=== PATIENT | male | born 1945 | race Caucasian/White ===

== ENCOUNTER 2022-07-26 05:09 | Observation (INO) ==
--- NOTE | 2022-07-03 15:37 | History & Physical Report ---
Date of Service July 03, 2022 date of surgery: 07/26/22 Procedure: Right Total Knee Arthroplasty Surgeon: Alfredo Ga Assessment & Plan (1) Arthritis of right knee: Plan: Risks and benefits of procedure discussed in detail today, patient would like to proceed with a Right total knee replacement at [facility] as scheduled. will obtain medical clearance through his PCP at the [place] prior to surgery as well as obtain PATs at [facility]. Will place on ASA 81mg po bid x 1 month post op, f/u 2 weeks post op for routine post-operative care and x-ray, sooner if having any problems. will make arrangements for HHPT at the time of discharge. At this point in time, has failed conservative measures and would like to proceed with surgical intervention. The risks and benefits have been discussed including, but not limited to, risk of infection, nerve injury, stiffness, loss of motion, failure to improve, etc. Reasonable outcomes and options of treatment were discussed. An explanation of appropriate alternatives to the procedure that may be advantageous were discussed and their risks and benefits, as well as the risks and benefits of not proceeding with treatment. I offered to answer any additional inquiries concerning the treatment involved. All the patient's questions were answered. The patient is agreeable, understanding of the treatment plan and alternatives, and wishes to proceed with the treatment plan. History of Present Illness Chief Complaint: Right knee pain Primary Care Provider: AROLDO Ibrahim Neeraj is a 77-year-old male presents for preop evaluation prior to right total knee replacement. He has been having pain in this knee for many years now which is gradually worsened, is now affecting his daily activities. He is tried previous injections including cortisone and viscosupplementation with minimal relief. He tried oral anti-inflammatories including naproxen. Rates current pain as a 6 out of 10. Has complaints of instability pain and intermittent swelling. After discussing further care and reviewing his x-rays he would like to proceed with a right total knee replacement Allergies Allergy/AdvReac Type Severity Reaction Status Date / Time No Known Allergies Allergy Verified 06/20/22 08:34 Home Medications Medication Instructions Recorded Confirmed Type aspirin 81 mg tablet,delayed 81 mg PO HS 05/17/22 06/20/22 History release cholecalciferol (vitamin D3) 25 25 mcg PO QAM 05/17/22 06/20/22 History mcg (1,000 unit) tablet (Vitamin D3) cyanocobalamin (vitamin B-12) 1,000 mcg PO QAM 05/17/22 06/20/22 History 1,000 mcg tablet (Vitamin B-12) finasteride 5 mg tablet 5 mg PO HS 05/17/22 06/20/22 History metoprolol succinate 25 mg 25 mg PO QAM 05/17/22 06/20/22 History tablet,extended release 24 hr ramipril 5 mg capsule 5 mg PO QAM 05/17/22 06/20/22 History rosuvastatin 40 mg tablet 40 mg PO HS 05/17/22 06/20/22 History tamsulosin 0.4 mg capsule 0.4 mg PO HS 05/17/22 06/20/22 History tiotropium bromide 2.5 2 puff inhalation QA 05/17/22 06/20/22 History mcg/actuation mist for inhalation vit C 250 mg-vit E 90 mg-zinc 40 1 tab PO BID 05/17/22 06/20/22 History mg-copper 1 [id number] capsule (PreserVision AREDS-2) Past Med/Surg History Medical History Bladder cancer DX 8 YR AGO/MONITORING CAD (coronary artery disease) 1 stent 2004 after [place], follows with PCP COPD (chronic obstructive pulmonary disease) MILD Enlarged prostate History of myocardial infarction 2004 ...STENT X 1 [place] (hard of hearing) HTN (hypertension) controlled, stable per pt Hyperlipidemia Macular degeneration HX SHOTS FOR/1 YR AGO Prostate cancer DX 8 YR AGO/MONITORING Sleep apnea CPAP-compliant Surgical History History of cardiac cath [place]...2005 - [facility] - STENT X 1 History of cholecystectomy History of colonoscopy with polypectomy NON CANCEROUS Social History Smoking Status: Current some day smoker Cigarettes Per Day: 1 PACK LASTS ABOUT 3 MONTHS / ADVISED NPO; Hx Alcohol Use: Yes Hx Substance Use: No Preferred Language: Angolan Communication Ability: Effective Driver Courier Required: No Beliefs That Will Affect Care: None Current Living Situation: Spouse Feels Safe at Home: Yes Assistive Devices: Denture - Upper and Hearing Aid - Bilateral Review of Systems Review of Systems: All systems reviewed & are unremarkable except as noted in HPI & below Constitutional: no fever, no chills and no sweats Respiratory: no cough and no dyspnea Cardiovascular: no chest pain, no dyspnea and no orthopnea Gastrointestinal: no abdominal pain, no nausea and no vomiting Musculoskeletal: as per Subjective / HPI Physical Exam Physical Exam: HT: 5ft 10in WT: 97.2kg Constitutional: WD/WN, vitals as above no acute distress Respiratory: normal respiratory effort, lungs clear to auscultation no respiratory distress, no labored breathing and does not use accessory muscles Cardiovascular: RRR, no murmur, no edema Gastrointestinal (Abdomen): normal bowel sounds, soft, nontender, no hepatosplenomegaly Musculoskeletal: Knee: + knee abnormal to inspection (RIGHT KNEE: ), + effusion (+1 effusion), + limited ROM of knee (ROM 0/3/110), + knee ROM with crepitation, + joint line tenderness (medial joint line) and + Ramiro's sign positive; no deformity, no skin erythema, no ecchymosis, no valgus laxity, no varus laxity, anterior drawer test negative, Kenji's sign negative and pivot shift test negative Results & Data Results & Data ([facility]) Diagnostic Findings Right Knee X-ray: Right knee series showing advanced degenerative changes to the right knee, narrowing of the medial compartment and patello-femoral joint with patellar spurring noted, findings showing joint space narrowing of the medial compartment and patello-femoral joint, osteophyte formation and subchondral sclerosis noted. overall varus alignment. no acute bony pathology noted.
--- NOTE | 2022-07-19 12:30 | Anesthesiology Consultation ---
Date of Service July 19, 2022 Assessment & Plan (1) Encounter for pre-operative examination: Plan - medical clearance 06/16/22: "...preop...labs, radiology and other diagnostic test results were reviewed with the patient...cleared for surgery..." - COVID screening: Per remote sensing specialist on 07/19/2022: Travel screen negative. Now at acceptable interval from positive COVID test to undergo surgery as scheduled. Chart Review Chart Review: Acceptable Risk for Surgery and Patient NOT seen in Pre Admission Testing History Surgery Operation Date: 07/26/22 10:35 Proposed Procedures p Right Total Knee Arthroplasty - Alfredo Ga DO Height/Weight Height: 5 ft 10 in Weight: 95.254 kg Allergies Allergy/AdvReac Type Severity Reaction Status Date / Time No Known Allergies Allergy Verified 06/20/22 08:34 Medications Home Medications Medication Instructions Recorded Confirmed Last Taken aspirin 81 mg tablet,delayed 81 mg PO 05/17/22 07/19/22 06/20/22 06:00 release cholecalciferol (vitamin D3) 25 25 mcg PO QA 05/17/22 07/19/22 06/06/22 07:00 mcg (1,000 unit) tablet (Vitamin D3) cyanocobalamin (vitamin B-12) 1,000 mcg PO QA 05/17/22 07/19/22 06/06/22 07:00 1,000 mcg tablet (Vitamin B-12) finasteride 5 mg tablet 5 mg PO 05/17/22 07/19/22 06/20/22 06:00 metoprolol succinate 25 mg 25 mg PO [facility] 05/17/22 07/19/22 06/20/22 06:00 tablet,extended release 24 hr ramipril 5 mg capsule 5 mg PO [facility] 05/17/22 07/19/22 06/20/22 06:00 rosuvastatin 40 mg tablet 40 mg PO 05/17/22 07/19/22 06/20/22 06:00 tamsulosin 0.4 mg capsule 0.4 mg PO 05/17/22 07/19/22 06/20/22 06:00 tiotropium bromide 2.5 2 puff inhalation [facility] 05/17/22 07/19/22 06/20/22 07:00 mcg/actuation mist for inhalation vit C 250 mg-vit E 90 mg-zinc 40 1 tab PO BID 05/17/22 07/19/22 06/06/22 07:00 mg-copper 1 [id number] capsule (PreserVision AREDS-2) Past Medical History Medical History Bladder cancer DX 8 YR AGO/MONITORING CAD (coronary artery disease) 1 stent 2004 after [place], follows with PCP COPD (chronic obstructive pulmonary disease) "MILD" Enlarged prostate History of COVID-19 06/20/22>symptoms resolved History of myocardial infarction 2005 ...STENT X 1 [place] (hard of hearing) HTN (hypertension) controlled, stable per pt Hyperlipidemia Macular degeneration HX SHOTS FOR/1 YR AGO Prostate cancer DX 8 YR AGO/MONITORING Sleep apnea CPAP-compliant Past Family History Family History Other No family history of adverse response to anesthesia Past Surgical History Surgical History History of cardiac cath [place]2005 - [facility] - STENT X 1 History of cholecystectomy History of colonoscopy with polypectomy Social History Smoking Status: Current some day smoker tobacco type: cigarettes Smoking cigarettes per day: 1 PACK LASTS ABOUT 3 MONTHS / ADVISED NPO Do You Dip or Chew Tobacco: No Hx Alcohol Use: Yes alcohol intake frequency: holidays/special occasions only Hx Substance Use: No substance use type: does not use Lab Results Anesthesia Preop Results Results Anesthesia Widget: WBC 6.52 K/ul (4.8-10.8) 05/26/22 Hgb 13.2 g/dl (14.0-18.0) L 05/26/22 Hct 40.1 % (40.1-51.0) 05/26/22 Plt 153 K/uL (130-400) 05/26/22 Na 141 mmol/L (136-145) 05/26/22 K 4.1 mmol/L (3.5-5.1) 05/26/22 Cl 108 mmol/L (98-107) H 05/26/22 CO2 27 mmol/L (21-32) 05/26/22 BUN 16 mg/dl (6-23) 05/26/22 Creat 1.11 mg/dl (0.6-1.4) 05/26/22 Glucose Level 94 mg/dl (70-99(Fasting)) 05/26/22 PT 10.7 Seconds (9.0-12.0) 05/26/22 PTT 25.5 Seconds (21.0-31.0) 05/26/22 INR 1.0 (0.9-1.1) 05/26/22 Urine Color [place] 05/26/22 Urine Appearance Clear (Clear) 05/26/22 Urine pH (4.5-7.5) 05/26/22 Urine Specific [place] 1.013 (1.000-1.030) 05/26/22 Urine Protein (Negative) 05/26/22 Urine Glucose (UA) (Negative) 05/26/22 Urine Ketones (Negative) 05/26/22 Urine Blood (Negative) 05/26/22 Urine Nitrite (Negative) 05/26/22 Urine Bilirubin (Negative) 05/26/22 Urine Urobilinogen (Negative) 05/26/22 Urine Leukocyte Esterase (Negative) 05/26/22 SARS-CoV-2, RNA, NAAT POSITIVE (NEGATIVE) A* 06/20/22 Blood Type A Negative 05/26/22 Antibody Screen NEGATIVE 05/26/22 Testing Electrocardiogram Date: 05/04/22 Sinus bradycardia with sinus arrhythmia, rate 48 bpm Chest X-Ray Date: 05/26/22 Calcifications within the aortic knob No acute process Echocardiogram Date: 09/14/17 EF 55-60% Mild cLVH No significant valvular stenosis or regurgitation Other Testing Carotid doppler 10/14/21 Mild plaque. No significant stenosis in either ICA
[2022-07-26] MEDS ORDERED: ACETAMINOPHEN 500 MG TAB PO SCH (06:00)
[2022-07-26] MEDS ORDERED: dexAMETHasone 4 MG TAB PO SCH (06:00)
[2022-07-26] MEDS ORDERED: LR 500ML BOLUS, THEN 15ML/HR IV SCH (06:00)
[2022-07-26] MEDS ORDERED: ROPIVACAINE 0.5% HCL/PF 150 MG, BUPIVACAINE 0.75% MPF 20 ML, EPINEPHrine 30MG/30ML (OR ... INFIL SCH (06:00)
[2022-07-26] MEDS ORDERED: CeleBREX 200 MG CAP PO SCH (06:00)
[2022-07-26] MEDS ORDERED: ceFAZolin 2000MG 2,000 MG/15 ML SYR IV SCH (06:00)
[2022-07-26] MEDS ORDERED: Ketorolac (*for OR use only*) 30 MG, dexAMETHasone 4 MG, KETAMINE HCL (**OR use only) 1... INFIL SCH (06:00)
[2022-07-26] MEDS ORDERED: METOCLOPRAMIDE HCL 10 MG TABLET PO SCH (06:00)
[2022-07-26] MEDS ORDERED: TRANEXAMIC ACID / 0.7% NACL 1,000 MG/100 ML BAG IV SCH ×2 (06:00→06:30)
[2022-07-26] MEDS ORDERED: FAMOTIDINE 20 MG TAB PO SCH (06:00)
[2022-07-26] MEDS ORDERED: GABAPENTIN 300 MG CAP PO SCH (06:00)
[2022-07-26] MEDS ORDERED: ROPIVACAINE 0.5% 5 MG/ML 30 ML VIAL ONE (06:23)
[2022-07-26] MEDS ORDERED: BUPIVACAINE 0.5 % 5 MG/1 ML PF 10ML VIAL ONE (06:23)
[2022-07-26] MEDS ORDERED: MIDAZOLAM HCL 1 MG/ML 2ML VIAL ONE (06:37)
[2022-07-26] MEDS ORDERED: TRANEXAMIC ACID / 0.7% NACL 1000MG/100ML BAG IV ONE (06:42)
[2022-07-26] MEDS ORDERED: ePHEDrine sulfate 50 MG/ML AMP IV PRN (06:50)
[2022-07-26] MEDS ORDERED: ONDANSETRON INJ 2 MG/ML 2 ML VIAL IV PRN ×2 (06:50→11:16)
[2022-07-26] MEDS ORDERED: ATROPINE SULFATE 0.1 MG/ML 10ML SYR IV PRN (06:50)
[2022-07-26] MEDS ORDERED: KETOROLAC 30 MG/ML VIAL IV PRN (06:50)
[2022-07-26] MEDS ORDERED: HYDROmorphone INJ 1 MG/ML SYRINGE IV PRN ×2 (06:50→11:16)
--- NOTE | 2022-07-26 07:07 | History & Physical Bridge Note ---
Date of Service July 26, 2022 History & Physical Bridge Note I have examined the patient, reviewed the History & Physical and in the interval since the performance of the History & Physical I have noted the following changes of clinical significance: no changes noted
[2022-07-26] MEDS ORDERED: PROPOFOL IV EMULSION 10 MG/ML 20 ML VIAL IV ONE (07:20)
--- NOTE | 2022-07-26 08:20 | Operative Report ---
Post Operative Report Pre & Post Diagnosis Operation Date: 07/26/22 07:00 Pre-Op Diagnosis: Osteoarthritis Right Knee Post-Op Diagnosis: Osteoarthritis Right Knee I identified the patient and participated in the time-out.: Yes Procedure Operation Date: 07/26/22 07:00 Actual Procedures p Right Total Knee Arthroplasty(Right) utilizing [employer] journey to an en bloc total knee arthroplasty size 6 femur 7 tibia 7 polyten patella 35 oval- Alfredo Ga DO Surgeon Alfredo Ga DO Binding Nicker KERWIN Nava Estimated Blood Loss 5 Findings Consistent with Post-Op Diagnosis Patient presents with severe end-stage tricompartmental DJD 7 degree flexion contracture varus alignment subchondral sclerosis marginal osteophytes eburnated [id number] with moderate to large effusion Specimens Bone and cartilage Drains Medium bore Hemovac Anesthesia Type MAC Spinal Regional Complications none Disposition Accompanied Patient To Recovery: No Disposition: Recovery Room Indications Patient presents severe end-stage DJD right knee no response to conservative management patient's failed all attempts at conservative management including corticosteroid injection viscosupplementation relative rest activity modification the above intraoperative findings were noted Description of Procedure After proper prepping and draping of the Right lower extremity anterior midline incision was made over the region of the extensor extensor mechanism after meticulous hemostasis was obtained and maintained in subcutaneous tissues a medial parapatellar incision was made The patella was subluxed lateralward the medial lateral gutter were cleaned from any hypertrophic synovitis and scar tissue of the distal femoral block was placed and the distal femoral osteotomy cut was made subsequently the chamfers anterior and posterior osteotomy cuts were made utilizing the 4-in-1 block the tibia was subsequently subluxed anteriorward medial and ateral meniscal remnants were excised in their entirety remnants of the anterior and posterior cruciate ligaments were excised in their entirety excellent exposure of the proximal tibia was obtained the tibial osteotomy guide was placed on the proximal tibial osteotomy cut was made once again the knee was irrigated with copious amounts of sterile saline solution the patella was subsequently everted lateralward thickened scar tissue around the patella was removed the patella was subsequently cut utilizing a freehand technique and was drilled prepared for final preparation and placement of patella socially flexion-extension gaps were checked and the equal and symmetric trials were placed to the appropriate femoral and tibial trials with poly-spacer being placed for equal flexion and extension gaps and full range of motion including extension to 0 and flexion to 140 the trial components after having been taken to recovery range of motion was subsequently removed meticulous hemostasis was obtained and maintained subsequently a knee block injection of joint cocktail including ropivacaine 0.5% 150 mg. Bupivacaine 0.5% epinephrine 1-200,030 mL's toradol 30 mg dexamethasone 4 mg ketamine 10 mg clonidine 100 micrograms normal saline solution 30 mg was infiltrated into the soft tissues of the posterior knee medial lateral gutters and periosteal synovium special attention was paid to protect neurovascular structures at all times subsequently trial components having been removed the knee was irrigated with sterile saline solution. debris was removed the proximal tibia was subsequently prepared and was made ready for the placement of the tibial component tibial component was also cemented and tamped into position the femoral component was subsequently placed and cemented in the position the patellar component was subsequently cemented in position because hemostasis once again obtained and maintained wound having been thoroughly irrigated with debridement and debridement lavage was performed as well as a medial parapatellar incision closed with #1 Vicryl in interrupted fashion subcutaneous was closed with #2 Vicryl skin was closed with skin clips. PA-C was necessary for prepping and drapping as well as wound closure of deep fascia Sub cutaneous tissue and skin and was necessary for the case. A sterile compressive dressing was placed patient was taken to recovery in stable condition of report dictated by Harmeet I attest to the content of the Intraoperative Record and any orders documented therein. Any exceptions are noted below.Due to the complex nature of the procedure, the entire surgery was performed with the operational assistance of KERWIN Nava. The drug safety assistant, under direct supervision, was involved in the actual performance of all aspects of the surgical procedure including hemostasis, tissue retraction and incision, instrument management, patient positioning, and wound closure. I attest to the content of the Intraoperative Record and any orders documented therein. Any exceptions are noted below.
--- NOTE | 2022-07-26 09:33 | XRay Report ---
XR knee RT 1 or 2V routine CLINICAL HISTORY: Postoperative evaluation. COMPARISON: None FINDINGS: Alignment of the total right knee arthroplasty is anatomic. No periprosthetic fracture or unexpected radiopaque foreign body. There is a surgical drain. IMPRESSION: Expected findings following total right knee arthroplasty. ACT 112: Negative or not required by law. Electronically signed by: Jay Tim M.D. 07/26/2022 9:32 AM
[2022-07-26] MEDS ORDERED: SODIUM CHLORIDE 0.9% 1000ML 1,000 ML IV SCH (11:16)
[2022-07-26] MEDS ORDERED: MAGNESIUM HYDROXIDE SUSP 30 ML UDC PO PRN (11:16)
[2022-07-26] MEDS ORDERED: METOCLOPRAMIDE HCL INJ 5 MG/ML 2 ML VIAL IV PRN (11:16)
[2022-07-26] MEDS ORDERED: diphenhydrAMINE Capsule 25 MG CAP PO PRN (11:16)
[2022-07-26] MEDS ORDERED: NALOXONE HCL 0.4 MG/1 ML VIAL/CARP IV PRN (11:16)
[2022-07-26] MEDS ORDERED: bisacodyL 10 MG SUPP PR PRN (11:16)
[2022-07-26] MEDS ORDERED: oxyCODONE HCL IR 5 MG TAB (IMMEDIATE RELEASE) PO PRN (11:16)
[2022-07-26] MEDS ORDERED: NON-FORMULARY MEDICATION (Vit C,E-Zn-Coppr-Lutein-Zeaxan [Preservision Areds-2] 250-90-40- PO SCH (11:16)
--- NOTE | 2022-07-26 11:57 | Anesthesiology Progress Note ---
Date of Service July 26, 2022 Anesthesia Post Procedure Vital Signs Vital Signs: Temp Pulse Pulse Resp BP Pulse Ox O2 Del Method 07/26/22 11:30 52 L 14 125/72 97 Room Air 07/26/22 11:00 56 L 14 165/76 H 93 Room Air 07/26/22 10:45 54 L 12 157/76 H 96 Room Air 07/26/22 10:30 56 L 12 163/81 H 97 Room Air 07/26/22 10:15 58 L 14 147/77 H 94 Room Air 07/26/22 10:05 63 17 140/72 97 Room Air 07/26/22 09:55 59 L 13 137/67 95 Room Air 07/26/22 09:45 57 L 12 140/74 96 Room Air 07/26/22 09:25 36.3 C L 58 L 12 126/68 96 Room Air 07/26/22 09:15 55 L 14 140/64 99 Oxymask 07/26/22 09:05 57 L 15 122/57 L 100 Oxymask 07/26/22 09:35 63 15 147/70 H 96 Room Air 07/26/22 08:57 36.3 C L 62 14 116/56 L 98 Oxymask 07/26/22 05:42 36.5 C 59 L 20 130/67 97 Room Air O2 Flow Rate 07/26/22 11:30 07/26/22 11:00 07/26/22 10:45 07/26/22 10:30 07/26/22 10:15 07/26/22 10:05 07/26/22 09:55 07/26/22 09:45 07/26/22 09:25 07/26/22 09:15 6 07/26/22 09:05 6 07/26/22 09:35 07/26/22 08:57 6 07/26/22 05:42 Transfer of Care Handoff Completed per policy Notes Mental Status: alert / awake / arousable Patient Amnestic to Procedure: Yes Nausea / Vomiting: adequately controlled Pain: adequately controlled Airway Patency, RR, SpO2: stable & adequate BP & HR: stable & adequate Hydration State: stable & adequate Neuraxial Anesthesia: was administered and sensory block is resolving Anesthetic Complications: no major complications apparent
[2022-07-26] MEDS: CYANOCOBALAMIN (B-12) 500 MCG TABLET PO SCH (15:24)
[2022-07-26] MEDS: ENALAPRIL MALEATE 10 MG TAB PO SCH (15:24)
[2022-07-26] MEDS: ASPIRIN 81 MG ECTAB PO SCH ×2 (15:24→21:21)
[2022-07-26] MEDS: CHOLECALCIFEROL 1,000 UNITS 25 MCG TAB PO SCH (15:27)
[2022-07-26] MEDS: MULTIVITAMIN TAB PO SCH (15:27)
[2022-07-26] MEDS: METOPROLOL SUCC 25MG EXT REL TAB PO SCH (15:27)
[2022-07-26] MEDS: UMECLIDINIUM BROMIDE 62.5MCG/BLISTER 7 PUFFS/INHALER INH SCH (15:28)
[2022-07-26] MEDS: ACETAMINOPHEN 500 MG TAB PO SCH ×2 (15:28→21:27)
[2022-07-26] MEDS: DOCUSATE SODIUM 100 MG CAP PO SCH ×2 (15:36→21:22)
[2022-07-26] MEDS: KETOROLAC TROMETHAMINE 15 MG/ML VIAL IV SCH ×3 (15:36→23:59)
[2022-07-26] MEDS: ceFAZolin 2000MG 2,000 MG/15 ML SYR IV SCH ×2 (16:40→23:58)
[2022-07-26] MEDS ORDERED: TAMSULOSIN HCL 0.4 MG CAP PO SCH (21:00)
[2022-07-26] MEDS ORDERED: FINASTERIDE 5 MG TAB PO SCH (21:00)
[2022-07-26] MEDS ORDERED: SENNA 8.6 MG TAB PO SCH (21:00)
[2022-07-26] MEDS ORDERED: ROSUVASTATIN CALCIUM 20 MG TAB PO SCH (21:00)
[2022-07-27] MEDS: ACETAMINOPHEN 500 MG TAB PO SCH (05:24)
[2022-07-27] MEDS: KETOROLAC TROMETHAMINE 15 MG/ML VIAL IV SCH (05:25)
--- NOTE | 2022-07-27 06:43 | Orthopedic Progress Note ---
Date of Service July 27, 2022 Assessment & Plan (1) History of total right knee replacement: Plan: POD #1 s/p Right TKA pt/ot dvt proph with [facility]/SCD/ASA plan for d/c home with HHPT Admission and Anticipated Discharge Date Admission Date: July 26, 2022 Subjective POD #1 s/p Right TKA Review of Systems Constitutional: no fever, no chills and no sweats Respiratory: no cough and no dyspnea Cardiovascular: no chest pain and no dyspnea Gastrointestinal: no abdominal pain, no nausea and no vomiting Physical Exam Physical Exam: Vital Signs Temp 36.8 C 07/27/22 03:21 Pulse 58 L 07/27/22 03:21 Resp 18 07/27/22 03:21 BP 108/60 07/27/22 03:21 Pulse Ox 96 07/27/22 03:21 O2 Del Method 07/27/22 03:21 O2 Flow Rate 6 07/26/22 09:15 Intake & Output 07/26/22 07/26/22 07/27/22 06:59 18:59 06:59 Intake Total 1400 / 1400 0 / 1400 Output Total 820 / 820 Balance 580 / 580 0 / 580 Weight 95.8 kg 95.8 kg Intake: IV 100 / 100 0 / 100 Lactated Ringe r's 1,000 ml @ 15 0 / 0 mls/hr IV .Q24 H [facility] Rx#: [id number] Sodium Chlorid e 0.9% 1000ML 1, 0 / 0 000 ml @ 100 m ls/hr IV .Q10H [facility] Rx#:[id number] Tranexamic Aci d / 0.7% NaCl 1, 100 / 100 000 mg In 100 ml @ 600 mls/hr IV TODAY@0630 [facility] Rx#:[id number] IV Perioperative 1300 / 1300 Output: Urine 800 / 800 Estimated Blood Loss 5 / 5 Drain Output 15 / 15 Right Knee Hem ovac 15 / 15 Other: Weight Measureme nt Method Standing Scale Musculoskeletal: Right Leg: NVDI, calf SNT, negative trina sign. DP palpable, able to wiggle toes/ankle movement without difficulty. dressing clean dry and intact. Results & Data ([facility]) Vital Signs (Past 12 Hours) Vital Signs Temp Pulse Resp BP Pulse Ox O2 Del Method 07/27/22 03:21 36.8 C 58 L 18 108/60 96 Room Air 07/26/22 23:00 36.8 C 62 18 115/62 98 Room Air
[2022-07-27 07:28] LABS: Hematocrit (blood only) 33.4 % (40.1-51.0); Hemoglobin 11.4 g/dl (14.0-18.0); Mean Corpuscular Hemoglobin 32.4 pg (25.0-34.0); Mean Corpuscular Hgb Conc 34.1 g/dL (32.0-36.0); Mean Corpuscular Volume 94.9 fL (80.0-100.0); Mean Platelet Volume 10.6 fL (9.4-12.4); Platelet Count 136 K/uL (130-400); RDW Coefficient of Variation 14.1 % (11.5-14.5); RDW Standard Deviation 48.8 fL (36.4-46.3); Red Blood Count 3.52 M/uL (4.63-6.08); White Blood Count 13.67 K/ul (4.8-10.8)
--- NOTE | 2022-07-27 07:30 | Discharge Summary ---
Date of Service date of discharge: July 27, 2022 date of admission: 07/26/22 Admission HPI Per Admitting Provider Neeraj is a 77-year-old male presents for preop evaluation prior to right total knee replacement. He has been having pain in this knee for many years now which is gradually worsened, is now affecting his daily activities. He is tried previous injections including cortisone and viscosupplementation with minimal relief. He tried oral anti-inflammatories including naproxen. Rates current pain as a 6 out of 10. Has complaints of instability pain and intermittent swelling. After discussing further care and reviewing his x-rays he would like to proceed with a right total knee replacement Principal Diagnosis right knee arthritis Discharge Exam Vital Signs Temp 36.9 C 07/27/22 07:22 Pulse 56 L 07/27/22 07:22 Resp 18 07/27/22 07:22 BP 127/66 07/27/22 07:22 Pulse Ox 97 07/27/22 07:22 O2 Del Method 07/27/22 07:22 O2 Flow Rate 6 07/26/22 09:15 Intake & Output 07/26/22 07/27/22 07/27/22 18:59 06:59 18:59 Intake Total 1400 / 1400 0 / 1400 Output Total 820 / 820 Balance 580 / 580 0 / 580 Weight 95.8 kg Intake: IV 100 / 100 0 / 100 Lactated Ringer's 1,000 ml @ 15 0 / 0 mls/hr IV .Q24H [facility] Rx#: [id number] Sodium Chloride 0.9% 1000ML 1, 0 / 0 000 ml @ 100 mls/hr IV .Q10H [facility] Rx#:[id number] Tranexamic Acid / 0.7% NaCl 1, 100 / 100 000 mg In 100 ml @ 600 mls/hr IV TODAY@0630 [facility] Rx#:[id number] IV Perioperative 1300 / 1300 Output: Urine 800 / 800 Estimated Blood Loss 5 / 5 Drain Output 15 / 15 Right Knee Hemovac 15 / 15 Musculoskeletal Right knee: NVDI, calf SNT, negative trina sign. DP palpable, able to wiggle toes/ankle movement without difficulty. dressing clean dry and intact. expected post-operative bruising noted. Discharge Data Allergies Allergy/AdvReac Type Severity Reaction Status Date / Time No Known Allergies Allergy Verified 07/26/22 05:30 Procedures Performed Operation Date: 07/26/22 07:00 Actual Procedures p Right Total Knee Arthroplasty(Right) - Alfredo Ga DO Ordered Studies 07/26/22 05:00 US - OR guided needle placemen Routine Hospital Course (1) History of total right knee replacement: POD #1 s/p Right TKA pt/ot dvt proph with PHOEBE/SCD/ASA plan for d/c home with HHPT Total Time Total Time Spent Total Time Spent (In Minutes): 20 Discharge Plan Discharge Items Patient Disposition: Home - Home Health Services Reason For Visit: Osteoarthritis Right Knee Discharge Diagnosis: right total knee replacement Condition on Discharge: Good Activity: Per Instructions section Weightbearing Comment: wbat with walker Non-emergency contact: Surgeon Call non-emergency contact if: you have any medication questions, your temperature is above 101, your wound has increased redness, your wound has increased drainage and your wound pain has increased Follow-up/Referrals: Yue Boyd CRNP [Primary Care Provider] - Diet: Regular Addtl Attending Provider Instructions: ACTIVITY RECOMMENDATIONS: SELF CARE INSTRUCTIONS AFTER TOTAL KNEE REPLACEMENT A. You may need to continue a physical therapy program after discharge from the hospital. There are several options available to you. Your doctor will assist you in selecting the best one for you. 1. An out-patient facility 2 to 3 times a week for therapy or home therapy. 2. Continue working on all exercises taught to you in the hospital. Your goals should be to increase bending of your knee to 90 degrees and beyond and to fully straighten your knee. B. You may progress at your own pace from walking with a walker or crutches to a cane; then to no assistive devices. C. Make walking a part of your daily routine. Be up as much as comfortable with rest periods throughout the day. Rest with leg elevation is very important. Use the ice wrap frequently for the first 3-4 weeks. D. There are no restrictions on activities. You may ride in a car, shop, participate in narcotics and/or vice detective and all social activities. E. Wear the long elastic stockings (PHOEBE hose) 20 hours a day for 2 weeks after surgery. They can be removed several times a day for laundering and for a bath. F. You may shower, no tub baths until cleared by your doctor. SPECIAL CARE INSTRUCTIONS: VERY IMPORTANT TO READ AND REVIEW A. There are a few signs you need to watch for after you are home. Call [facility] if you notice any of the followin. Increased severe knee pain. Some pain is expected especially when you exercise. 2. Increased swelling in your leg or knee; pain or swelling of the calf muscle in either lower leg. 3. Any fluid drainage from the incision. 4. Shortness of breath or chest pain. B. Please call [facility] at if you have any concerns or questions about your operation or recovery. The doctor or his nurse will return your call promptly. C. You must take antibiotics before dental work, bladder, bowel or other surgery. Your doctor will provide you with a permanent care to carry describing this precaution. IMPORTANT: * REMEMBER TO TAKE ASPIRIN, 81 MG, TWICE DAILY FOR 4 WEEKS UNLESS OTHERWISE DIRECTED. THIS IS YOUR BLOOD THINNER. * HIGH RISK PATIENTS MAY BE PRESCRIBED A STRONGER BLOOD THINNER. THIS WILL BE PROVIDED AT DISCHARGE. * CALL IF INCREASED PAIN, REDNESS, DRAINAGE OR FEVER GREATER THAT 101. * WEAR PHOEBE HOSE 20 HOURS PER DAY FOR 2 WEEKS. DRESSING INSTRUCTIONS * DEEJAY Dressing- This is a large suction dressing covering your incision. This will help pull any excess drainage from the wound and allow your incision to heal properly. You may shower with this if you can keep the unit outside of the shower. If any bleeding or leakage is noted please call your doctor's office. This will remain on your incision for 7 days and then should be removed. This can be done yourself or by the home nursing staff if applicable. The entire unit is disposable once removed. Once removed, keep incision clean and dry. If redness or drainage is noted, please call your surgeon. ONCE DEEJAY IS REMOVED, FOLLOW THESE INSTRUCTIONS: DERMABOND Prineo- This is a mesh tape dressing that is covered with glue. It should remain in place until the incision is properly healed, usually 10-14 days. This dressing is designed to naturally slough off. You may trim the excess mesh tape as it peels off. Incision may be briefly wet in a shower. Dry immediately by blotting with a clean, dry towel. Do not bath or swim until instructed by your doctor. Do not scratch, rub, or pick at the dressing. Do not apply any topical ointments or lotions until dressing is completely removed and/or instructed by your doctor. There may be a small piece of suture material at one end of your incision. Do not pull or trim this. If it is bothersome or catching on clothing, you may cover it with a band-aid. IF INCISION IS LEAKING THROUGH DRESSING, CALL THE OFFICE . FOLLOW UP VISIT: If appointment is not already scheduled: Please call [facility] to make a follow-up appointment for 2 weeks after your surgery at . Stand-Alone Forms: My [facility] Medications and DC Order Prescriptions: New acetaminophen [Tylenol Extra Strength] 500 mg Tablet 1,000 mg PO Q8 21 Days Qty: 126 0RF aspirin 81 mg Tablet,Delayed Release (Dr/Ec) 81 mg PO BID 30 Days Qty: 60 0RF celecoxib [Celebrex] 200 mg Capsule 200 mg PO BID 30 Days Qty: 60 0RF oxycodone 5 mg Tablet 5 - 10 mg PO Q6H PRN (Reason: pain) Qty: 30 0RF Rx Instructions: ongoing therapy, supervising Dr Jose Ga. Max 6 tabs in 24 hours docusate sodium 100 mg Capsule 100 mg PO BID 10 Days Qty: 20 0RF cefadroxil 500 mg capsule 500 mg PO BID 14 Days Qty: 28 0RF Continued cyanocobalamin (vitamin B-12) [Vitamin B-12] 1,000 mcg Tablet 1,000 mcg PO QAM tamsulosin 0.4 mg Capsule 0.4 mg PO HS metoprolol succinate 25 mg Tablet Extended Release 24 Hr 25 mg PO QAM finasteride 5 mg Tablet 5 mg PO HS ramipril 5 mg Capsule 5 mg PO QAM rosuvastatin 40 mg Tablet 40 mg PO HS cholecalciferol (vitamin D3) [Vitamin D3] 25 mcg (1,000 unit) Tablet 25 mcg PO QAM PreserVision AREDS-2 250-90-40-1 mg Capsule 1 tab PO BID tiotropium bromide 2.5 mcg/actuation Mist 2 puff INHALATION QAM Discontinued aspirin [Aspir-81] 81 mg Tablet,Delayed Release (Dr/Ec) 81 mg PO HS Discharge Orders: Discharge Order (Routine); Ordered 07/27/22 Ordered By: Álvaro Pastrana/Other Patient Handouts: Total Knee Replacement, Pain Management After Surgery Admission Data Admit Date/Time: 07/26/22 09:00 Attending Provider: Alfredo Ga Admit Provider: Alfredo Ga Primary Care Provider: Yue Boyd
[2022-07-27 07:59] LABS: BUN Creatinine Ratio 19.2 (10-20); Calcium 9.2 mg/dl (8.5-10.1); Creatinine Clr Calc Pharmacy 56.6 ml/min; Est GFR (African American) 63.5 ml/min; Est GFR (Non-African American) 54.8 ml/min; Potassium 4.4 mmol/L (3.5-5.1)
[2022-07-27] MEDS: ENALAPRIL MALEATE 10 MG TAB PO SCH (08:11)
[2022-07-27] MEDS: METOPROLOL SUCC 25MG EXT REL TAB PO SCH (08:11)
[2022-07-27] MEDS: CYANOCOBALAMIN (B-12) 500 MCG TABLET PO SCH (08:11)
[2022-07-27] MEDS: CHOLECALCIFEROL 1,000 UNITS 25 MCG TAB PO SCH (08:11)
[2022-07-27] MEDS: ASPIRIN 81 MG ECTAB PO SCH (08:12)
[2022-07-27] MEDS: MULTIVITAMIN TAB PO SCH (08:12)
[2022-07-27] MEDS: UMECLIDINIUM BROMIDE 62.5MCG/BLISTER 7 PUFFS/INHALER INH SCH (08:13)
[2022-07-27] MEDS ORDERED: CeleBREX 200 MG CAP PO SCH (12:00)
== END 2022-07-27 11:50 | disposition home health service (06) ==
LOC: PACUINP 05:09 → ASU 05:09 → 3E 12:12
DX: M17.11 Unilateral primary osteoarthritis, right knee; Z79.82 Long term (current) use of aspirin; Z79.899 Other long term (current) drug therapy; F17.210 Nicotine dependence, cigarettes, uncomplicated